=== PATIENT | male | born 1945 | race Hispanic/Latino ===

== ENCOUNTER 2016-11-23 14:34 | Emergency (ER) | payer MEDICARE ==
[2016-11-23 14:47] VITALS: TEMP 98.6; BMI 43.9
--- NOTE | 2016-11-23 14:57 | ED PDOC ---
Arrival/HPI - General Chief Complaint: Lower Extremity Problem/Injury Time Seen by Provider: 11/23/16 14:50 Historian: Patient - History of Present Illness Narrative History of Present Illness (Text): 11/23/16 14:54 71 year old male sent by PMD for evaluation of right posterior thigh pain for the past 10 days. Denies fever. Denies trauma or injury. Time/Duration: > week Symptom Course: Unchanged Modifying Factors (Text): None Associated Symptoms (Text): None Past Medical History - Infectious Disease Hx of Infectious Diseases: None - Tetanus Immunization Tetanus Immunization: Unknown - Cardiac Hx Cardiac Disorders: Yes Hx Hypertension: Yes (diet controlled) Hx Peripheral Vascular Disease: Yes Other/Comment: Lower ext circ discoloration,nonhealing ulcer right leg - Pulmonary Hx Respiratory Disorders: No - Neurological Hx Neurological Disorder: Yes Other/Comment: diabetic neuropathy - HEENT Hx HEENT Disorder: Yes (wears glasses) - Renal Hx Renal Failure: Yes - Endocrine/Metabolic Hx Diabetes Mellitus Type 2: Yes (diet controlled) Hx Hypothyroidism: Yes - Hematological/Oncological Hx Blood Disorders: Yes Hx Anemia: Yes (blood transfusions) Hx Cancer: Yes (dx cll september 2014) Hx Chemotherapy: Yes - Integumentary Hx Dermatological Disorder: Yes - Musculoskeletal/Rheumatological Hx Musculoskeletal Disorders: Yes Hx Arthritis: Yes Hx Falls: No - Gastrointestinal Hx Gastrointestinal Disorders: Yes (obese) Hx Diverticulitis: Yes (15 yrs ago) - Genitourinary/Gynecological Hx Genitourinary Disorders: No - Psychiatric Hx Psychophysiologic Disorder: No Hx Emotional Abuse: No Hx Physical Abuse: No Hx Substance Use: No - Surgical History Hx Amputation: Yes (toes on left foot, great and 2nd toe) Other/Comment: great and 2nd toe left ft amputated 15 yrs ago - Anesthesia Hx Anesthesia: No Hx Anesthesia Reactions: No Hx Malignant Hyperthermia: No - Suicidal Assessment Feels Threatened In Home Enviroment: No Family/Social History Family/Social History: Unknown Family HX Smoking Status: Never Smoked Hx Alcohol Use: No Hx Substance Use: No Hx Substance Use Treatment: No Allergies/Home Meds Allergies/Adverse Reactions: Allergies No Known Allergies Allergy (Verified 11/23/16 14:48) Home Medications: Home Meds Medication Instructions Recorded Confirmed Doxazosin [Cardura] 2 mg PO DAILY 10/02/14 08/07/16 Levothyroxine Sodium 0.2 mg PO DAILY 10/02/14 08/07/16 Mupirocin 2% Cream [Bactroban 30 applic TOP BID 10/02/14 08/07/16 Cream] ALPRAZolam [Xanax] 1 mg PO HS PRN 10/31/15 08/07/16 Bupropion HCl [Wellbutrin] 150 mg PO ACB 02/14/16 08/07/16 Review of Systems - Physician Review All systems were reviewed & negative as marked: Yes - Review of Systems Constitutional: absent: Fevers Musculoskeletal: Other (Right thigh pain) Physical Exam - Physical Exam Narrative Physical Exam (Text): Constitutional: No acute distress. Head: Normocephalic. Atraumatic. Eyes: PERRL. ENT: Moist mucous membranes. Neck: Supple. Cardiovascular: Regular rate. Chest: No tenderness. Respiratory: Clear to auscultation bilaterally. GI: Soft. Nontender. Nondistended. Back: No CVA tenderness. Musculoskeletal: Mild edema to right distal thigh/knee. Full range of motion. No erythema. No tenderness of extremities. Skin: No rash. Neurologic: Alert, no focal deficit. Vital Signs Reviewed: Yes Vital Signs Temp Pulse Resp BP Pulse Ox 11/23/16 15:23 89 18 127/71 98 11/23/16 14:43 98.6 F 95 H 20 129/79 96 Temperature: Afebrile Blood Pressure: Normal Pulse: Regular Respiratory Rate: Normal Appearance: Positive for: Well-Appearing, Non-Toxic Mental Status: Positive for: Alert and Oriented X 3 Medical Decision Making ED Course and Treatment: Impression: 71 year old male sent by PMD for evaluation of right posterior thigh pain for 10 days. Plan: -- Ultrasound Duplex Lower Extremity -- Reassess and disposition Prior Visits: Notes and results from previous visits were reviewed. Patient last seen in ED on 08/07/16 and admitted for leukocytosis, weakness. Progress Notes: 11/23/16 16:18 Doppler negative for DVT. Discussed case with Dr. Jason who agrees with discharge and will have patient follow up with him. - RAD Interpretation Radiology Orders: 11/23/16 14:50 DUPLEX LOWER EXTRM VEIN RIGHT [US] Stat - Scribe Statement The provider has reviewed the documentation as recorded by the Raquel Hooks Provider Scribe Attestation: All medical record entries made by the Scribe were at my direction and personally dictated by me. I have reviewed the chart and agree that the record accurately reflects my personal performance of the history, physical exam, medical decision making, and the department course for this patient. I have also personally directed, reviewed, and agree with the discharge instructions and disposition. Disposition/Present on Arrival - Present on Arrival Any Indicators Present on Arrival: No History of DVT/PE: No History of Uncontrolled Diabetes: No Urinary Catheter: No History of Decub. Ulcer: No History Surgical Site Infection Following: None - Disposition Have Diagnosis and Disposition been Completed?: Yes Diagnosis: Leg swelling Disposition: HOME/ ROUTINE Disposition Time: 16:18 Patient Plan: Discharge Condition: STABLE Discharge Instructions (ExitCare): Leg Edema (ED) Referrals: Anastacio Jason MD [Staff Provider] - Follow up with primary
[2016-11-23 15:24] VITALS: RESP 18; O2SAT 98
[2016-11-23 16:24] VITALS: BP 125/69; PULSE 79
--- NOTE | 2016-11-23 17:07 | US ---
PROCEDURE: Right lower extremity venous US HISTORY: Leg pain and swelling. Evaluate for DVT. PHYSICIAN(S): Rayshawn Naik M.D. TECHNIQUE: Duplex sonography and color-flow Doppler with graded compression were used to evaluate the deep venous system of the right lower extremity. The exam is limited by body habitus and edema. The lower femoral vein and tibial veins are not well seen. FINDINGS: The visualized deep venous system of the right lower extremity is sonographically normal and compressible. Normal waveforms and augmentation are seen. There is no sonographic evidence for deep venous thrombosis in the visualized segments of the right lower extremity. IMPRESSION: 1. No sonographic evidence for deep venous thrombosis in the visualized segments of the right lower extremity. 2. Limited study.
== END 2016-11-23 16:40 | disposition home or self-care (01) ==
LOC: ED 14:34
DX: M79.89 Other specified soft tissue disorders (principal); I12.9 Hypertensive chronic kidney disease with stage 1 through stage 4 chronic kidney disease, or unspecified chronic kidney disease; E11.22 Type 2 diabetes mellitus with diabetic chronic kidney disease; N18.9 Chronic kidney disease, unspecified

== ENCOUNTER 2017-07-28 14:26 | Emergency (ER) | payer MEDICARE ==
[2017-07-28 14:26] VITALS: BMI 91.7
[2017-07-28 14:38] VITALS: RESP 17; TEMP 97.5
--- NOTE | 2017-07-28 14:43 | ED PDOC ---
Arrival/HPI - General Chief Complaint: Male Genitourinary Time Seen by Provider: 07/28/17 14:42 Historian: Patient, Spouse - History of Present Illness Narrative History of Present Illness (Text): 07/28/17 14:43 70 y/o male with hx CLL ( in remission) , chronic non-healing RLE wound, DM, HTN who presents to this ED c/o dysuria, and urgency since last night. Patient stated he also developed hematuria since this morning. Patient denies fever, sob, cp, abdominal pain, flank pain, genital rash, testicular pain, pelvic pain , dizziness, or abnormal gait. Time/Duration: Other (see hpi) Context: Home Past Medical History - Provider Review Nursing Documentation Reviewed: Yes - Infectious Disease Hx of Infectious Diseases: None - Tetanus Immunization Tetanus Immunization: Unknown - Cardiac Hx Cardiac Disorders: Yes Hx Hypertension: Yes (diet controlled) Hx Peripheral Vascular Disease: Yes Other/Comment: Lower ext circ discoloration,nonhealing ulcer right leg - Pulmonary Hx Respiratory Disorders: No - Neurological Hx Neurological Disorder: Yes Other/Comment: diabetic neuropathy - HEENT Hx HEENT Disorder: Yes (wears glasses) - Renal Hx Renal Failure: Yes - Endocrine/Metabolic Hx Diabetes Mellitus Type 2: Yes (diet controlled) Hx Hypothyroidism: Yes - Hematological/Oncological Hx Blood Disorders: Yes Hx Anemia: Yes (blood transfusions) Hx Cancer: Yes (dx cll september 2014) Hx Chemotherapy: Yes - Integumentary Hx Dermatological Disorder: Yes - Musculoskeletal/Rheumatological Hx Musculoskeletal Disorders: Yes Hx Arthritis: Yes - Gastrointestinal Hx Gastrointestinal Disorders: Yes (obese) Hx Diverticulitis: Yes (15 yrs ago) - Genitourinary/Gynecological Hx Genitourinary Disorders: No - Psychiatric Hx Psychophysiologic Disorder: No Hx Substance Use: No - Surgical History Hx Amputation: Yes (toes on left foot, great and 2nd toe) Other/Comment: great and 2nd toe left ft amputated 15 yrs ago - Anesthesia Hx Anesthesia: No Hx Anesthesia Reactions: No Hx Malignant Hyperthermia: No - Suicidal Assessment Feels Threatened In Home Enviroment: No Family/Social History - Physician Review Nursing Documentation Reviewed: Yes Family/Social History: Other (noncontributory) Smoking Status: Never Smoked Hx Alcohol Use: Yes Frequency of alcohol use: Socially Hx Substance Use: No Hx Substance Use Treatment: No Allergies/Home Meds Allergies/Adverse Reactions: Allergies No Known Allergies Allergy (Verified 07/28/17 14:38) Home Medications: Home Meds Medication Instructions Recorded Confirmed Levothyroxine Sodium 0.2 mg PO DAILY 10/02/14 07/28/17 Mupirocin 2% Cream [Bactroban 30 applic TOP BID 10/02/14 07/28/17 Cream] ALPRAZolam [Xanax] 1.5 mg PO HS PRN 10/31/15 07/28/17 Bupropion HCl [Wellbutrin] 150 mg PO ACB 02/14/16 07/28/17 Review of Systems - Review of Systems Constitutional: Normal. absent: Fatigue, Weight Change, Fevers Eyes: Normal. absent: Photophobia ENT: Normal. absent: Sore Throat Respiratory: Normal. absent: SOB, Cough, Sputum, Wheezing Cardiovascular: Normal, Other (pmh heart murmur). absent: Chest Pain, Palpitations Gastrointestinal: Normal. absent: Abdominal Pain, Nausea, Vomiting Genitourinary Male: Dysuria, Frequency, Hematuria Musculoskeletal: Normal. absent: Back Pain, Neck Pain Skin: Normal. absent: Rash Neurological: Normal. absent: Headache, Dizziness, Focal Weakness, Gait Changes , Speech Changes, Facial Droop, Disequilibrium Endocrine: Normal Hemo/Lymphatic: Normal Psychiatric: Normal Physical Exam Vital Signs Temp Pulse Resp BP Pulse Ox 07/28/17 14:31 97.5 F L 94 H 17 167/94 H 96 Temperature: Afebrile Blood Pressure: Normal Pulse: Regular Respiratory Rate: Normal Appearance: Positive for: Well-Appearing, Non-Toxic, Comfortable Pain Distress: None Mental Status: Positive for: Alert and Oriented X 3 - Systems Exam Head: Present: Atraumatic, Normocephalic Pupils: Present: PERRL Extroacular Muscles: Present: EOMI Conjunctiva: Present: Normal Mouth: Present: Moist Mucous Membranes Respiratory/Chest: Present: Clear to Auscultation, Good Air Exchange. 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 No: CVA Tenderness Upper Extremity: Present: Normal Inspection, Normal ROM Lower Extremity: Present: Normal Inspection, Normal ROM Neurological: Present: GCS=15, CN II-XII Intact, Speech Normal, Motor Func Grossly Intact, Normal Sensory Function, Normal Cerebellar Funct, Gait Normal, Memory Normal Skin: Present: Warm, Dry, Normal Color. No: Rashes Psychiatric: Present: Alert, Oriented x 3, Normal Insight, Normal Concentration Medical Decision Making ED Course and Treatment: 07/28/17 16:46 Re-evaluation. Patient feels better. Discussed results and plan with patient who expresses understanding. All questions answered and there is agreement with the plan to discharge home with instructions. Patient stable for discharge. Return if symptoms persist or worsen. Patient remained stable during the course of ED visit. Patient is afebrile, and he denies other somatic complains. Abdomen is sof, nt/nd. Lungs CTA b/l. Patient has a normal gait, without neuro focal deficits. Patient was recommended to f/u PMD in 2-3 days, and to review urine culture result with his PMD and urologist. To return to emergency if patient develops fever, flank pain or worsening of symptoms. Re-evaluation Time: 16:49 Reassessment Condition: Re-examined, Improved - Lab Interpretations Lab Results: Lab Results 07/28/17 14:56: Urine Color Dark red, Urine Appearance Bloody, Urine pH 6.0, Ur Specific Cody 1.025, Urine Protein 100 H, Urine Glucose (UA) Negative, Urine Ketones Trace H, Urine Blood Large H, Urine Nitrate Negative, Urine Bilirubin Negative, Urine Urobilinogen 0.2, Ur Leukocyte Esterase Small H, Urine RBC Tntc , Urine WBC Tntc, Ur Epithelial Cells 0 - 2, Urine Bacteria Small I have reviewed the lab results: Yes Interpretation: Abnormal lab values (acute hemorrhagic cystitis) - Medication Orders Current Medication Orders: Discontinued Medications Nitrofurantoin Macrocrystals (Macrobid) 100 mg PO STAT STA PRN Reason: Protocol Stop: 07/28/17 14:57 Last Admin: 07/28/17 15:55 Dose: 100 mg Phenazopyridine HCl (Pyridium) 200 mg PO STAT STA Stop: 07/28/17 15:00 Last Admin: 07/28/17 15:56 Dose: 200 mg Disposition/Present on Arrival - Present on Arrival Any Indicators Present on Arrival: No History of DVT/PE: No History of Uncontrolled Diabetes: No Urinary Catheter: No History of Decub. Ulcer: No History Surgical Site Infection Following: None - Disposition Have Diagnosis and Disposition been Completed?: Yes Diagnosis: Acute hemorrhagic cystitis Disposition: HOME/ ROUTINE Disposition Time: 16:50 Patient Plan: Discharge Condition: GOOD Discharge Instructions (ExitCare): Acute Cystitis (DC) Additional Instructions: Call Private doctor for follow up visit in 2 days. Also call Urologist for further evaluation, and possible further tests. Take medication as instructed. Pyridium could make your urine turn orange. Review urine culture result with your doctor or urologist in 2 days. Return to emergency if you develop fever, flank pain, or worsening of symptoms. Prescriptions: Nitrofurantoin Macrocrystals [Macrobid] 100 mg PO BID #20 cap Phenazopyridine HCl [Pyridium] 200 mg PO TID #6 tablet Referrals: Jordan Lopez MD [Primary Care Provider] - Follow up with primary Yung Funes MD [Staff Provider] - Follow up with primary Forms: [facility] (Eritrean)
[2017-07-28 16:14] LABS: URINE BILIRUBIN NEGATIVE (NEGATIVE); URINE BLOOD LARGE (NEGATIVE); URINE GLUCOSE (UA) NEGATIVE (NEGATIVE); URINE LEUKOCYTE ESTERASE SMALL Leu/uL (NEGATIVE); URINE PROTEIN 100 mg/dL (<30 mg/dL); URINE UROBILINOGEN 0.2 E.U./dL (<1 E.U./dL)
[2017-07-28 16:15] LABS: URINE APPEARANCE BLOODY (CLEAR); URINE COLOR DARK RED (YELLOW)
[2017-07-28 16:45] LABS: URINE BACTERIA SMALL (NEG); URINE EPITHELIAL CELLS 0 - 2 /hpf (0-5); URINE RBC TNTC /hpf (0-2); URINE WBC TNTC /hpf (0-6)
[2017-07-28 22:04] VITALS: BP 159/85; PULSE 89; O2SAT 98
== END 2017-07-28 16:15 | disposition home or self-care (01) ==
LOC: ED 14:26
DX: N30.00 Acute cystitis without hematuria (principal)

== ENCOUNTER 2018-05-28 11:16 | Outpatient (CLI) | payer MEDICARE | END 2018-05-28 11:17 | disposition home or self-care (01) | LOC: RAD 11:16 ==

== ENCOUNTER 2018-06-03 14:08 | Emergency (ER) | payer MEDICARE ==
[2018-06-03 14:12] VITALS: BMI 43.0
--- NOTE | 2018-06-03 14:56 | ED PDOC ---
Arrival/HPI - General Chief Complaint: Chest Pain Historian: Patient, Spouse () - History of Present Illness Narrative History of Present Illness (Text): 06/03/18 14:50 A 72 year old male, whose past medical history includes CLL(has treatment about once a month with Dr. Gann, uses port to chest for treatment.), chronic non- healing RLE wound, heart murmur, diabetes, and hypertension, who is accompanied by his , presents to the emergency department complaining of non-radiating pleuritic chest pain since last night. Patient reports chest pain worsens with movement. States he has taken Percocet for the pain, and has taken his regular medications earlier today. Also, patient mentions having pleurisy approximately 45 years ago. Patient denies any falls/injuries, or any other complaints at this time. PMD: Dr. Lopez Past Medical History - Provider Review Nursing Documentation Reviewed: Yes - Infectious Disease Hx of Infectious Diseases: None - Tetanus Immunization Tetanus Immunization: Unknown - Cardiac Hx Cardiac Disorders: Yes Hx Hypertension: Yes (diet controlled) Hx Peripheral Vascular Disease: Yes Other/Comment: Lower ext circ discoloration,nonhealing ulcer right leg - Pulmonary Hx Respiratory Disorders: No - Neurological Hx Neurological Disorder: Yes Other/Comment: diabetic neuropathy - HEENT Hx HEENT Disorder: Yes (wears glasses) - Renal Hx Renal Failure: Yes - Endocrine/Metabolic Hx Diabetes Mellitus Type 2: Yes (diet controlled) Hx Hypothyroidism: Yes - Hematological/Oncological Hx Blood Disorders: Yes Hx Anemia: Yes (blood transfusions) Hx Cancer: Yes (dx cll september 2014) Hx Chemotherapy: Yes - Integumentary Hx Dermatological Disorder: Yes - Musculoskeletal/Rheumatological Hx Musculoskeletal Disorders: Yes Hx Arthritis: Yes - Gastrointestinal Hx Gastrointestinal Disorders: Yes (obese) Hx Diverticulitis: Yes (15 yrs ago) - Genitourinary/Gynecological Hx Genitourinary Disorders: No - Psychiatric Hx Psychophysiologic Disorder: No Hx Substance Use: No - Surgical History Hx Amputation: Yes (toes on left foot, great and 2nd toe) Other/Comment: great and 2nd toe left ft amputated 15 yrs ago - Anesthesia Hx Anesthesia: No Hx Anesthesia Reactions: No Hx Malignant Hyperthermia: No - Suicidal Assessment Feels Threatened In Home Enviroment: No Family/Social History - Physician Review Nursing Documentation Reviewed: Yes Family/Social History: No Known Family HX Smoking Status: Never Smoked Hx Alcohol Use: Yes Hx Substance Use: No Hx Substance Use Treatment: No Allergies/Home Meds Allergies/Adverse Reactions: Allergies No Known Allergies Allergy (Verified 07/28/17 14:38) Home Medications: Home Meds Medication Instructions Recorded Confirmed Levothyroxine Sodium 0.2 mg PO DAILY 10/02/14 06/03/18 ALPRAZolam [Xanax] 0.5 mg PO TID 10/31/15 06/03/18 Bupropion HCl [Wellbutrin] 150 mg PO ACB 02/14/16 06/03/18 Cyclobenzaprine [Cyclobenzaprine 10 mg PO DAILY 06/03/18 06/03/18 HCl] Furosemide [Lasix] 40 mg PO DAILY 06/03/18 06/03/18 Ibrutinib [Imbruvica] 420 mg PO DAILY 06/03/18 06/03/18 oxyCODONE/Acetaminophen [Percocet 1 tab PO PRN PRN 06/03/18 06/03/18 5/325 mg Tab] Review of Systems - Physician Review All systems were reviewed & negative as marked: Yes - Review of Systems Cardiovascular: Chest Pain (pleuritic, non-radiating, worsens with movement.) Musculoskeletal: Back Pain (pain and aches) Physical Exam Vital Signs Reviewed: Yes Vital Signs Temp Pulse Resp BP Pulse Ox 06/03/18 14:08 99.6 F 87 18 155/82 H 97 Temperature: Afebrile Blood Pressure: Normal Pulse: Regular Respiratory Rate: Normal Appearance: Positive for: Well-Appearing, Non-Toxic, Comfortable Pain Distress: None Mental Status: Positive for: Alert and Oriented X 3 - Systems Exam Head: Present: Atraumatic, Normocephalic Pupils: Present: PERRL Extroacular Muscles: Present: EOMI Conjunctiva: Present: Normal Mouth: Present: Moist Mucous Membranes Neck: Present: Normal Range of Motion Respiratory/Chest: Present: Clear to Auscultation, Good Air Exchange. No: Respiratory Distress, Accessory Muscle Use, Wheezes, Rales, Rhonchi, Tender to Palpation (no tenderness to palpation at anterior chest wall.) Cardiovascular: Present: Regular Rate and Rhythm, Murmurs (systolic, best heard at left lower lung region.), Normal S1, S2 Abdomen: No: Tenderness, Distention, Peritoneal Signs Back: Present: Normal Inspection Upper Extremity: Present: Normal Inspection. No: Cyanosis, Edema Lower Extremity: Present: Edema (+2 pitting edema bilaterally), Other (chronic venastasis noted bilaterally) Neurological: Present: GCS=15, CN II-XII Intact, Speech Normal Skin: Present: Warm, Dry, Normal Color. No: Rashes Psychiatric: Present: Alert, Oriented x 3, Normal Insight, Normal Concentration Medical Decision Making ED Course and Treatment: 06/03/18 14:57 Impression: 72 year old male with non-radiating pleuritic chest pain. Plan: -- Chest X-ray -- Labs -- Toradol -- Urinalysis -- Reassess and disposition Prior Visits: Notes and results from previous visits were reviewed. Patient was last seen here in the emergency department on 07/28/2017 for dysuria and urgency. Patient was discharged home. Progress Notes: 06/03/18 16:02 Labs reviewed with negative troponin and CXR showing no evidence of infiltrates. Patient reassessed and feels better desiring to go home. Spoke to Dr. Lopez(PCP) who states patient may stay for observation or follow up in his office depending on how he feels. Patient updated on plan and makes decision to go home. - Lab Interpretations I have reviewed the lab results: Yes - RAD Interpretation Narrative RAD Interpretations (Text): 06/03/2018 15:15 Chest X-ray IMPRESSION: No active pulmonary disease. Dictator: Tracy Moon MD - Scribe Statement The provider has reviewed the documentation as recorded by the Raquel Muro Provider Scribe Attestation: All medical record entries made by the Scribe were at my direction and personally dictated by me. I have reviewed the chart and agree that the record accurately reflects my personal performance of the history, physical exam, medical decision making, and the department course for this patient. I have also personally directed, reviewed, and agree with the discharge instructions and disposition. Disposition/Present on Arrival - Present on Arrival Any Indicators Present on Arrival: No History of DVT/PE: No History of Uncontrolled Diabetes: No Urinary Catheter: No History of Decub. Ulcer: No History Surgical Site Infection Following: None - Disposition Have Diagnosis and Disposition been Completed?: No Diagnosis: Pleurisy Disposition Time: 16:16 Patient Plan: Discharge Discharge Instructions (ExitCare): Pleuritic Chest Pain (DC) Print Language: ZAMBIAN Additional Instructions: All medical record entries made by the Scribe were at my direction and personally dictated by me. I have reviewed the chart and agree that the record accurately reflects my personal performance of the history, physical exam, medical decision making, and the department course for this patient. I have also personally directed, reviewed, and agree with the discharge instructions and disposition. Please follow up with Dr. Lopez in 1-2 days Referrals: Jordan Lopez MD [Family Provider] - Follow up with primary Forms: [employer] (German)
[2018-06-03 15:02] LABS: BASO # 0.02 K/mm3 (0.0-2.0); BASO % 0.2 % (0.0-3.0); EOS # 0.1 (0.0-0.7); EOS % 1.6 % (1.5-5.0); GRAN # 5.14 (1.4-6.5); GRAN % 60.1 % (50.0-68.0); HEMOGLOBIN 13.3 g/dL (14.0-18.0); LYMPH # 2.5 (1.2-3.4); MEAN CELL VOLUME 86.1 fl (80.0-105.0); MEAN CORPUSCULAR HGB CONC 32.5 g/dl (31.0-37.0); MEAN PLATELET VOLUME 12.7 fl (7.0-11.0); MONO # 0.8 (0.1-0.6); MONO % 9.1 % (1.0-6.0); RBC 4.75 10^6/uL (3.5-6.1); RED CELL DISTRIBUTION WIDTH 14.1 % (11.5-14.5); WHITE BLOOD COUNT 8.6 10^3/uL (4.5-11.0)
[2018-06-03 15:08] LABS: ALB/GLOB RATIO 1.7 (1.1-1.8); ALT/SGPT 35 U/L (7-56); AST/SGOT 21 U/L (17-59); BLOOD UREA NITROGEN 30 mg/dL (7-21); CALCIUM 9.5 mg/dL (8.4-10.5); GFR NON-AFRICAN AMERICAN 54
[2018-06-03 15:09] LABS: INR 1.12; PARTIAL THROMBOPLASTIN TIME 30.5 Seconds (25.1-36.5); PROTHROMBIN TIME 12.8 SECONDS (9.4-12.5)
--- NOTE | 2018-06-03 15:18 | RAD ---
Date of service: 06/03/2018 HISTORY: Chest pain COMPARISON: 10/09/2016 FINDINGS: The right IJV line terminates at the cavoatrial junction LUNGS: The lungs are well inflated and clear. PLEURA: No pleural effusions or pneumothorax. CARDIOVASCULAR: The heart is normal in size. No aortic atherosclerotic calcifications present. OSSEOUS STRUCTURES: Within normal limits for the patient's age. VISUALIZED UPPER ABDOMEN: Normal. OTHER FINDINGS: There is chronic elevation of the right hemidiaphragm. IMPRESSION: No active pulmonary disease.
[2018-06-03 15:22] LABS: B-TYPE NATRIURETIC PEPTIDE 492 pg/mL (0-450); TROPONIN I 0.02 ng/mL
[2018-06-03 16:42] VITALS: BP 150/80; PULSE 83; RESP 20; TEMP 98.8; O2SAT 94
--- NOTE | 2018-06-04 09:40 | CARD ---
APPROVED REPORT Date of service: 06/03/2018 EKG Measurement Heart [id number] <Conclusion> Sinus rhythm with 1st degree AV block with occasional premature ventricular complexes Left axis deviation PRWP NSSTW changes
== END 2018-06-03 16:40 | disposition home or self-care (01) ==
LOC: ED 14:08
DX: R09.1 Pleurisy (principal); I10 Essential (primary) hypertension; E11.9 Type 2 diabetes mellitus without complications; E03.9 Hypothyroidism, unspecified
CPT/HCPCS: 71045; 80053; 83735; 83880; 84484; 85025; 85610; 85730; 93005; 96374; 99283; J1885

== ENCOUNTER 2018-09-30 11:18 | Outpatient (CLI) | payer MEDICARE | END 2018-09-30 11:19 | disposition home or self-care (01) | LOC: RAD 11:18 ==

== ENCOUNTER 2018-10-01 11:54 | Outpatient (CLI) | payer MEDICARE | END 2018-10-01 11:55 | disposition home or self-care (01) | LOC: LAB 11:54 ==